=== PATIENT | male | born 1965 | race Caucasian/White ===

== ENCOUNTER → 2017-08-13 | Outpatient (CLI) | payer OTHER, BC ==
[2017-08-13 10:35] LABS: BASO # 0.1 10^3/uL (0.0-0.2); BASO % 0.9 % (0.0-1.0); EOS # 0.1 10^3/uL (0.0-0.50); EOS % 1.8 % (0.0-3.0); HEMATOCRIT 46.3 % (42.0-52.0); HEMOGLOBIN 15.4 g/dl (14.0-18.0); IMMATURE GRANULOCYTE % 0.3 % (0-0); LYMPH % 30.7 % (24.0-44.0); MEAN CORPUSCULAR HEMOGLOBIN 32.3 pg (27.0-33.0); MEAN CORPUSCULAR HGB CONC 33.3 g/dl (32.0-36.5); MEAN CORPUSCULAR VOLUME 97.1 fl (80.0-96.0); MONO # 0.4 10^3/uL (0.0-0.8); MONO % 5.9 % (0.0-5.0); NEUTROPHILS % 60.4 % (36.0-66.0); PLATELET COUNT, AUTOMATED 239 10^3/uL (150-450); RED BLOOD COUNT 4.77 10^6/uL (4.30-6.10); WHITE BLOOD COUNT 6.6 10^3/uL (4.0-10.0)
[2017-08-13 11:08] LABS: ANION GAP 5 MEQ/L (8-16); BLOOD UREA NITROGEN 13 MG/DL (7-18); CALCIUM LEVEL 9.3 MG/DL (8.5-10.1); CARBON DIOXIDE LEVEL 30 MEQ/L (21-32); CHLORIDE LEVEL 107 MEQ/L (98-107); CREATININE FOR GFR 0.73 MG/DL (0.70-1.30); GLOMERULAR FILTRATION RATE > 60.0 (>56); GLUCOSE, FASTING 100 MG/DL (70-105); POTASSIUM SERUM 4.5 MEQ/L (3.5-5.1); SODIUM LEVEL 142 MEQ/L (136-145)
== END ==
LOC: M LAB 09:54
DX: Z01.818 Encounter for other preprocedural examination (principal); I15.9 Secondary hypertension, unspecified; G56.03 Carpal tunnel syndrome, bilateral upper limbs
CPT/HCPCS: 93005

== ENCOUNTER 2017-09-01 14:28 | Emergency (ER) | payer BC, OTHER | END 2017-09-01 16:38 | disposition home or self-care (01) | LOC: M ED 14:28 | DX: I10 Essential (primary) hypertension (principal); F17.210 Nicotine dependence, cigarettes, uncomplicated; K21.9 Gastro-esophageal reflux disease without esophagitis; E78.00 Pure hypercholesterolemia, unspecified; Z79.899 Other long term (current) drug therapy; Z79.82 Long term (current) use of aspirin | CPT/HCPCS: 99283 ==

== ENCOUNTER → 2018-05-27 | Outpatient (CLI) | payer BC, OTHER | LOC: M SLEEP 19:43 | DX: G47.33 Obstructive sleep apnea (adult) (pediatric) (principal) | CPT/HCPCS: 95810 ==

== ENCOUNTER → 2018-06-04 | Outpatient (CLI) | payer BC, OTHER | LOC: M RAD 15:38 | DX: Z12.2 Encounter for screening for malignant neoplasm of respiratory organs (principal); F17.210 Nicotine dependence, cigarettes, uncomplicated | CPT/HCPCS: G0297 ==

== ENCOUNTER → 2018-07-15 | Outpatient (CLI) | payer BC, OTHER ==
[~2018-07-15] MED LIST: ALLE10TA12 PO; ASPI81TA85 PO; HEARTAB2 PO; LISINOP/HCTZ PO; SIMV20TA2 PO; VERA24TASA PO
--- NOTE | 2018-07-17 08:52 | SLEEPCENT ---
DATE OF PROCEDURE: 07/15/2018 ORDERED BY: Dr. Cheema Nocturnal polysomnography was performed for the titration of pressure therapy in this patient with obstructive sleep apnea syndrome and apnea-hypopnea index of 17.2. For testing, a ResMed AirFit F20 mask was used of medium size and 4 cm of water pressure was initially applied to the circuit and the lights were extinguished. 7 hours and 34 minutes of data were reviewed. There were 381 minutes of sleep identified. Sleep latency was mildly prolonged at 22 minutes. Rapid eye movement (REM) latency was prolonged at 113 minutes. Sleep architecture was good with 2 REM cycles. Overall sleep efficiency was 84.7%. The patient's electrocardiogram showed a sinus rhythm with an average heart rate of 57 beats per minute. Electroencephalogram (EEG) showed normal waveforms for awake and sleep. Respiratory events were fully palliated with C-PAP at a pressure of +8. Some limb activity was seen early in the study. Limb movement arousal index was 5.5, similar to the patient's diagnostic night. IMPRESSION: Obstructive sleep apnea syndrome (G47.33). RECOMMENDATION: Nightly use of pressure therapy at 8 cm of water.
== END ==
LOC: M SLEEP 19:41
PROVIDERS: ATTEND Internal Medicine Pulmonary Disease
DX: G47.33 Obstructive sleep apnea (adult) (pediatric) (principal)

== ENCOUNTER → 2019-07-02 | Outpatient (CLI) | payer BC, OTHER ==
[~2019-07-02] MED LIST changes: -SIMV20TA2 PO; +SIMV20TA22 PO
--- NOTE | 2019-07-02 11:38 | REP ---
Clinical: Lung screening. History smoking. Comparison: 06/04/2018 Technique: Axial low-dose noncontrast images from the thoracic inlet to the upper abdomen using lung screening technique. Findings: The lung pitts are well-aerated. No consolidation, significant nodule or mass lesion is appreciated. No pleural effusion/reaction or pneumothorax. Tracheobronchial tree is patent. Mediastinum demonstrates mild atherosclerotic changes of the coronary arteries without cardiomegaly. Impression: Lung-RADS category I. No nodule or suspicious abnormality. Management recommendations include annual low-dose CT reevaluation. Electronically Signed by Redd Garibay MD 07/02/2019 11:30 A
== END ==
LOC: M RAD 10:58
PROVIDERS: ATTEND Internal Medicine Pulmonary Disease
DX: F17.200 Nicotine dependence, unspecified, uncomplicated (principal)

== ENCOUNTER → 2020-07-05 | Outpatient (CLI) | payer BC, OTHER ==
[~2020-07-05] MED LIST changes: -ASPI81TA85 PO; +ASPI81TA86 PO
--- NOTE | 2020-07-05 17:46 | REP ---
INDICATION: NICOTINE DEPEND. COMPARISON: Comparison CT study screening exams July 02, 2019 and June 04, 2018.. TECHNIQUE: 3 mm axial lung window only slices are re-formatted. FINDINGS: Digital preliminary rug shampooer radiograph shows some linear fibrosis in the right lung base. Axial CT images show no evidence of lung mass or nodule. There is some linear fibrosis in the right middle lobe at the lung base above the right hemidiaphragm unchanged. No infiltrate or atelectatic changes are noted. No endobronchial lesion is seen. There is some vascular calcification in the left coronary artery distribution. IMPRESSION: Lung RADS category 1 findings. Repeat screening exam indicated in 1 year. <Electronically signed by Giorgi Sun > 07/05/20 [id number]
== END ==
LOC: M RAD 15:30
PROVIDERS: ATTEND Internal Medicine Pulmonary Disease
DX: F17.218 Nicotine dependence, cigarettes, with other nicotine-induced disorders (principal)

== ENCOUNTER → 2020-07-13 | Outpatient (CLI) | payer OTHER | LOC: M PLALAB 12:37 | PROVIDERS: ATTEND Nurse Practitioner Family | DX: R97.20 Elevated prostate specific antigen [PSA] (principal) ==

== ENCOUNTER → 2020-07-19 | Outpatient (REF) | payer OTHER | LOC: M LAB REF 12:43 | PROVIDERS: ATTEND Physician Assistant Medical | DX: Z20.828 Contact with and (suspected) exposure to other viral communicable diseases (principal) ==

== ENCOUNTER → 2020-08-02 | Outpatient (REF) | payer OTHER | LOC: M LAB REF 12:45 | PROVIDERS: ATTEND Physician Assistant Medical | DX: Z11.59 Encounter for screening for other viral diseases (principal) ==

== ENCOUNTER → 2021-04-27 | Outpatient (CLI) | payer OTHER | LOC: M PLALAB 15:37 | PROVIDERS: ATTEND Nurse Practitioner Adult Health | DX: C61 Malignant neoplasm of prostate (principal) ==

== ENCOUNTER → 2021-07-19 | Outpatient (CLI) | payer BC, OTHER ==
[~2021-07-19] MED LIST changes: +VERA240T65 PO; -VERA24TASA PO
--- NOTE | 2021-07-19 15:01 | REP ---
INDICATION: SMOKER COMPARISON: 07/05/2020, 07/02/2019 TECHNIQUE: Axial noncontrast images from the thoracic inlet to the upper abdomen using low-dose lung screening technique (LDCT). FINDINGS: Lung pitts are well aerated with minimal stable chronic changes. No acute consolidation, suspicious nodule or mass. No effusion. No pneumothorax. Tracheobronchial tree is patent. Mediastinum is stable with minimal atherosclerotic changes to the thoracic aorta and coronary arteries again noted. IMPRESSION: Lung-RADS category 1. Management recommendations include annual low-dose CT surveillance. <Electronically signed by Redd Garibay > 07/19/21 [id number]
== END ==
LOC: M RAD 13:52
PROVIDERS: ATTEND Internal Medicine Pulmonary Disease
DX: F17.218 Nicotine dependence, cigarettes, with other nicotine-induced disorders (principal)

== ENCOUNTER → 2022-09-08 | Outpatient (CLI) | payer BC, OTHER | LOC: M RAD 15:59 | PROVIDERS: ATTEND Internal Medicine Critical Care Medicine | DX: F17.218 Nicotine dependence, cigarettes, with other nicotine-induced disorders (principal) ==

== ENCOUNTER → 2023-09-10 | Outpatient (CLI) | payer BC, OTHER | LOC: M RAD 14:27 | PROVIDERS: ATTEND Internal Medicine Critical Care Medicine | DX: Z87.891 Personal history of nicotine dependence (principal) ==

== ENCOUNTER → 2024-09-25 | Outpatient (CLI) | payer BC | LOC: M RAD 14:44 | PROVIDERS: ATTEND Internal Medicine Critical Care Medicine | DX: F17.218 Nicotine dependence, cigarettes, with other nicotine-induced disorders (principal) ==